=== PATIENT | female | born 1955 | race Hispanic/Latino ===

== ENCOUNTER 2024-08-25 14:15 | Emergency (ER) | payer MEDICARE ==
[~2024-08-25] VITALS: Ht 152.4 cm; Wt 86.2 kg
[~2024-08-25 14:15] MED LIST: BP MEDICATIONS; HYDROCODON-ACE1 EA11 PO; [UNRECOGNIZED DRUG - OTHER]
[2024-08-25 15:45] VITALS: PULSE 68; RESP 18; TEMP 98.2; O2SAT 100
[2024-08-25 16:47] LABS: LEUKOCYTE ESTERASE ,URINE NEGATIVE (NEGATIVE); PROTEIN,URINE DIPSTICK NEGATIVE (NEGATIVE); URINE UROBILINOGEN 1 mg/dL (0.2 - 1)
[2024-08-25 16:58] LABS: EPITHELIAL CELLS,URINE FEW /LPF
[2024-08-25] MEDS: IBUPROFEN 600 MG TAB PO STA (17:00)
[2024-08-25] MEDS: TRAMADOL HCL 50 MG TAB PO STA (18:45)
[2024-08-25] MEDS ORDERED: ULTRAM 50MG50 MG PO (18:48)
== END 2024-08-25 18:50 | disposition home or self-care (01) ==
LOC: ER 17:05
DX: T14.90XA Injury, unspecified, initial encounter (principal); X58.XXXA Exposure to other specified factors, initial encounter; M25.552 Pain in left hip; M25.551 Pain in right hip; I10 Essential (primary) hypertension; E11.9 Type 2 diabetes mellitus without complications
CPT/HCPCS: 72110; 72170; 72220; 81001; 99283